=== PATIENT | female | born 1960 | race Caucasian/White ===

== ENCOUNTER 2017-01-19 11:12 | Emergency (ER) | payer OTHER ==
--- NOTE | ~2017-01-19 | CT4 ---
[facility] A Service of [facility] & [facility] RADIOLOGY TEXT RESULTS PATIENT: TL JOHNSON LOCATION: [facility] : 56 UNIT #: [id number] AGE: [address]: Stephane Diaz MD SEX: F ORDER DR: [id number] [facility] [address] [place], [place] [address] [id number] E MR#: [id number] Acc #: [id number] NAME: TL JOHNSON. : 1960 SEX: F STUDY DATE/TIME: 01/19/2017 12:44 UNIT: [facility] ROOM: STUDY DESCRIPTION: CT Abd and Pelv Wo Cont Attending Physician: Stephane Diaz M.D. Ordering Physician: Stephane Diaz M.D. MEDICAL IMAGING REPORT This report is preliminary unless electronic signature is present EXAM CT abdomen and pelvis 01/19/2017 INDICATION Abdominal pain with nausea, vomiting, and diarrhea for 1 week. Pain rates 8/10. TECHNIQUE Axial images were obtained through the abdominal aorta without contrast. Multiplanar reformats were obtained. This CT exam was performed with one or more of the following radiation dose reduction techniques: automatic exposure control, adjustment of mA and/or kV according to patient size, and iterative reconstruction. FINDINGS ABDOMEN: Lung bases are clear. Gallbladder is surgically absent. Spleen is enlarged with a dxrm-wm-yhoj length of 14.5 cm. The liver has a slightly scalloped contour which could indicate cirrhosis. Correlate with history. No focal liver lesion is seen on this noncontrast study. No renal or ureteral stones. No hydronephrosis. There is a left renal cyst. Unenhanced solid organs otherwise are normal. No free fluid or adenopathy is seen. The unopacified GI tract is normal. PELVIS: Urinary bladder is decompressed but grossly normal. Uterus is surgically absent. The appendix is normal. The remainder of the unopacified GI tract is normal as well. No free fluid is seen. There is degenerative disease in the icq-lc-inaqz lumbar spine. IMPRESSION 1. No renal or ureteral stones. No hydronephrosis. 2. Splenomegaly. 3. Scalloped margins to the liver which could indicate cirrhosis. [facility] A Service of [facility] & [facility] RADIOLOGY TEXT RESULTS PATIENT: TL JOHNSON LOCATION: [facility] : 56 UNIT #: [id number] AGE: [address]: Stephane Diaz MD SEX: F ORDER DR: Correlate with history. No focal liver lesion. 4. Cholecystectomy and hysterectomy. 5. Normal unopacified GI tract, including the appendix. Dictated by... Jimi Chong Jr., M.D. THIS IS AN ELECTRONICALLY VERIFIED REPORT Jimi Chong Jr., M.D. at 01/19/2017 9:43 PM TALITA/danis TD: 01/19/2017 15:16 JOB #: [id number] MEDICAL IMAGING REPORT Page 1 of 1 COPY
[~2017-01-19 11:12] MED LIST: ALPRAZOLAM; COMBIVENT INH14.7 GM; METHADOSE; PREMARIN; XOPENEX1.25 MG/0.
[2017-01-19 12:01] LABS: BASOPHIL% 0.3 % (0-2.5); EOSINOPHIL% 0.2 % (0.0-7.0); HEMATOCRIT 56.7 % (35.0-45.0); HEMOGLOBIN 18.9 gm/dL (12.0-16.0); LYMPHOCYTE# 1.7 X10e3 (1.0-3.5); MEAN CELL VOLUME 86.9 FL (83-96); MEAN CORPUSCULAR HGB CONC 33.4 g/dL (30-36); MEAN PLATELET VOLUME 9.7 FL (6.5-11.5); MONOCYTE# 0.9 X10e3 (0-1.0); MONOCYTE% 7.3 % (3.0-12.0); NEUTROPHIL# 9.5 X10e3 (1.5-7.1); NEUTROPHIL% 78.2 % (40-75); PLATELET COUNT 159 X10e3 (140-420); RED BLOOD COUNT 6.52 X10e (3.90-5.30); RED CELL DISTRIBUTION WIDTH 13.9 % (11.0-15.5); WHITE BLOOD COUNT 12.2 X10e3 (4.0-10.5)
[2017-01-19 12:04] LABS: DIFF IND NO
[2017-01-19 12:25] LABS: URINE SOURCE CLEAN CATCH
[2017-01-19 12:32] LABS: ALBUMIN SERUM 4.6 g/dL (3.5-5.0); BILIRUBIN, DIRECT 0.4 mg/dL (0.0-0.2); BILIRUBIN,INDIRECT 1.2 mg/dL (0.0-0.9); BILIRUBIN,TOTAL 1.6 mg/dL (0.2-2.0); BUN/CREATININE RATIO 28.88; CALCIUM SERUM 9.9 mg/dL (8.4-10.2); CREATININE SERUM 0.9 mg/dL (0.6-1.4); GLOM FILT RATE Estimated 70.5 mL/min (>60); POTASSIUM 3.8 mmol/L (3.5-5.1); PROTEIN TOTAL SERUM 8.6 g/dL (6.0-8.3)
[2017-01-19 12:43] LABS: URINE APPEARANCE CLOUDY; URINE BLOOD 1+ (NEG); URINE COLOR DK YELLOW; URINE GLUCOSE NEG (NEG); URINE KETONE 2+ (NEG); URINE LEUKOCYTE ESTERASE 1+ (NEG); URINE NITRATE POS (NEG); URINE PROTEIN 1+ (NEG); URINE SPECIFIC GRAVITY 1.032 (1.003-1.035)
[2017-01-19 12:47] LABS: URINE BACTERIA AUWI NEG (NEGATIVE); URINE SQUAMOUS EPITHELIAL CELL OCC /[HPF]
[2017-01-19 12:53] LABS: CULTURE INDICATED? NO; URINE BILIRUBIN POS (NEG)
== END 2017-01-19 14:15 | disposition home or self-care (01) ==
LOC: CED 11:12
DX: R10.84 Generalized abdominal pain (principal); R11.2 Nausea with vomiting, unspecified; R19.7 Diarrhea, unspecified; Z90.49 Acquired absence of other specified parts of digestive tract; Z88.8 Allergy status to other drugs, medicaments and biological substances; F17.200 Nicotine dependence, unspecified, uncomplicated; Z88.0 Allergy status to penicillin; Z88.1 Allergy status to other antibiotic agents; Z88.2 Allergy status to sulfonamides
CPT/HCPCS: 36415; 51701; 74176; 80048; 80076; 81003; 83690; 85025; 96361; 96372; 96374; 99284; J0500; J2405